=== PATIENT | male | born 1955 | race American Indian/Alaskan Native ===

== ENCOUNTER 2016-05-05 12:05 | Emergency (ER) | payer MEDICAID ==
[2016-05-05] MEDS ORDERED: TESSALON PERLES PO ONE (13:49)
[2016-05-05] MEDS ORDERED: TORADOL IV ONE (13:50)
[2016-05-05] MEDS ORDERED: APRESOLINE IV ONE (13:51)
[2016-05-05] MEDS ORDERED: REGLAN IV ONE (14:09)
[2016-05-05] MEDS ORDERED: DUONEB 0.5 MG-3 MG/3 ML SOLN IH ONE ×2 (14:09→18:44)
[2016-05-05] MEDS ORDERED: BENADRYL IV ONE (14:09)
--- NOTE | 2016-05-05 15:31 | Admit Criteria Form ---
Admission Criteria Documentation: HYPERTENSION Clinical Indications for Admission to Inpatient Care ( Place "X" for any and all applicable criteria): Admission is indicated for ANY ONE of the following(1)(2)(3)(4): [ ]I. Hypertensive emergency, with evidence of acute and progressing target organ disease as indicated by ANY ONE of the following: [ ]a) Hypertensive encephalopathy (eg, confusion, altered mental status) [ ]b) Cerebral infarction [ ]c) Intracranial hemorrhage [ ]d) Myocardial ischemia or infarction [ ]e) Pulmonary edema [ ]f) Aortic dissection [ ]g) Seizure [ ]h) Acute renal insufficiency [ ]i) Papilledema [ ]j) Microangiopathic hemolytic anemia [ ]II. Adrenergic crisis (eg, severe hypertension due to pheochromocytoma crisis, cocaine or amphetamine intoxication, or clonidine withdrawal) [X ]III. Severe hypertension (SBP greater than 180 mmHg or DBP greater than 110 mmHg or greater than the 95th percentile for age, gender, and height in pediatric patients) that cannot be controlled (eg, to SBP less than 160 mmHg and DBP less than 100 mmHg in adults) by treatment with oral medication in emergency department or observation care Extended stay beyond goal length of stay may be needed for(11)(12)(13): [ ]a) Persistent hypertensive encephalopathy [ ]b) Continuation of pulmonary edema [ ]c) Recurring or persistent severe hypertension [ ]d) Target organ damage (eg, angina, stroke, aortic dissection) [ ]e) Associated renal insufficiency The original [email or web address] content created by [email or web address] has been revised. The portions of the content which have been revised are identified through the use of italic text or in bold, and [facility] has neither reviewed nor approved the modified material. All other unmodified content is copyright [email or web address]. Please see references footnoted in the original [email or web address] edition 2016
[2016-05-05] MEDS ORDERED: DELTASONE PO ONE (18:44)
[2016-05-05] MEDS ORDERED: ZITHROMAX PO ONE (18:45)
--- NOTE | 2016-05-05 18:53 | Emergency Department Report ---
HPI - General Chief Complaint: Upper Respiratory Infection Time Seen by Provider: 05/05/16 13:47 - HPI HPI: The patient is a 61-year-old male with a history of asthma, who presents for evaluation of dyspnea and cough. The patient reports a nonproductive cough for greater than the past week, and wheezing with dyspnea, moderate to severe, exacerbated with exertion, improved with rest. He has secondary complaints of generalized moderate to severe aching in quality headache and cramping in quality moderate to severe epigastric abdominal pain, both worsened with coughing. The patient denies fever, chest pain, syncope, hemoptysis, unilateral leg swelling, recent immobilization, history of DVT or PE, recent cancer. ED Past Medical Hx - Past Medical History Hx Hypertension: Yes Hx Sickle Cell Disease: Yes (TRAIT) Hx Asthma: Yes Additional medical history: skull fracture, herniated disc - Surgical History Additional Surgical History: Left ulnar nerve impingement - Social History Smoking Status: Never Smoker Substance Use Type: None - Medications Home Medications: Home Medications Medication Instructions Recorded Confirmed Last Taken Type HYDROcodone/APAP 7.5-325 [Rainier 1 each PO Q6HR PRN #20 tablet 12/30/13 06/30/14 03/11/14 21:00 Rx 7.5-325 mg TAB] Naproxen [Naprosyn TAB] 500 mg PO BID #30 tablet 12/30/13 06/30/14 03/11/14 21: 00 Rx Oxycodone HCl/Acetaminophen 2 each PO Q6HR PRN #60 tablet 03/13/14 06/30/14 Unknown Rx [Percocet 7.5/325 mg] traMADol [Ultram] 50 mg PO Q6HR PRN #14 tablet 04/15/14 06/30/14 Unknown Rx Oxycodone HCl/Acetaminophen 1 each PO Q6H PRN #25 tablet 06/30/14 Unknown Rx [Percocet 7.5-325 mg Tablet] ALBUTEROL Inhaler [ProAir HFA 2 puff IH QID PRN #1 inhalation 02/02/15 Unknown Rx Inhaler] hydrOXYzine PAMOATE [Vistaril] 25 mg PO Q6HR PRN #20 capsule 02/02/15 Unknown Rx Famotidine [Pepcid] 20 mg PO BID #10 tablet 02/12/15 Unknown Rx hydrOXYzine PAMOATE [Vistaril] 25 mg PO Q6HR PRN #20 capsule 02/12/15 Unknown Rx ALBUTEROL Inhaler [ProAir HFA 2 puff IH QID PRN #1 inhalation 05/05/16 Unknown Rx Inhaler] Azithromycin [Zithromax Z-NUNU] 250 mg PO QDAY #6 tablet 05/05/16 Unknown Rx Benzonatate [Tessalon Perles] 100 mg PO Q8HR #14 capsule 05/05/16 Unknown Rx Verapamil HCl [Verapamil ER] 120 mg PO Q12H #60 tablet.er 05/05/16 Unknown Rx predniSONE [Deltasone] 20 mg PO QDAY #5 tab 05/05/16 Unknown Rx traMADol [Ultram 50 MG tab] 50 mg PO Q6HR PRN #10 tablet 05/05/16 Unknown Rx ED Review of Systems ROS: Stated complaint: SOB Other details as noted in HPI Constitutional: denies: fever ENT: denies: throat or neck pain Respiratory: reports cough, shortness of breath Cardiovascular: denies: chest pain Endocrine: denies unexplained weight loss or gain Gastrointestinal: denies: abdominal pain, nausea Genitourinary: denies: dysuria Musculoskeletal: denies: leg swelling Skin: denies: rash Neurological: reports headache Hematological/Lymphatic: denies: easy bleeding or easy bruising Psych: denies sadness or hopelessness Physical Exam - Physical Exam Vital Signs: Vital Signs 05/05/16 05/05/16 05/05/16 12:48 12:51 12:55 Temperature 99 F Pulse Rate 85 96 H 89 Pulse Rate [ Bilateral Upper Lobe] Respiratory 19 18 18 Rate Respiratory Rate [Bilateral Upper Lobe] Blood Pressure 156/98 O2 Sat by Pulse 92 93 94 Oximetry 05/05/16 05/05/16 05/05/16 13:00 13:11 13:21 Temperature Pulse Rate 87 82 94 H Pulse Rate [ Bilateral Upper Lobe] Respiratory 13 26 H 17 Rate Respiratory Rate [Bilateral Upper Lobe] Blood Pressure O2 Sat by Pulse 89 92 92 Oximetry 05/05/16 05/05/16 05/05/16 13:33 13:41 13:50 Temperature Pulse Rate 85 79 83 Pulse Rate [ Bilateral Upper Lobe] Respiratory 19 24 20 Rate Respiratory Rate [Bilateral Upper Lobe] Blood Pressure O2 Sat by Pulse 90 90 91 Oximetry 05/05/16 05/05/16 05/05/16 14:01 14:11 14:21 Temperature Pulse Rate 81 76 85 Pulse Rate [ Bilateral Upper Lobe] Respiratory 20 26 H 13 Rate Respiratory Rate [Bilateral Upper Lobe] Blood Pressure O2 Sat by Pulse 91 87 95 Oximetry 05/05/16 05/05/16 05/05/16 14:31 14:41 14:51 Temperature Pulse Rate 89 79 79 Pulse Rate [ Bilateral Upper Lobe] Respiratory 17 20 23 Rate Respiratory Rate [Bilateral Upper Lobe] Blood Pressure 180/106 180/106 O2 Sat by Pulse 93 96 96 Oximetry 05/05/16 05/05/16 05/05/16 15:00 15:05 15:11 Temperature Pulse Rate 76 78 Pulse Rate [ 85 Bilateral Upper Lobe] Respiratory 21 19 Rate Respiratory 18 Rate [Bilateral Upper Lobe] Blood Pressure 156/93 156/93 O2 Sat by Pulse 98 100 Oximetry 05/05/16 05/05/16 05/05/16 15:21 15:22 15:31 Temperature Pulse Rate 101 H 105 H Pulse Rate [ 88 Bilateral Upper Lobe] Respiratory 27 H 21 Rate Respiratory 18 Rate [Bilateral Upper Lobe] Blood Pressure 156/93 156/93 O2 Sat by Pulse 94 90 Oximetry 05/05/16 05/05/16 05/05/16 15:41 15:51 16:00 Temperature Pulse Rate 87 83 86 Pulse Rate [ Bilateral Upper Lobe] Respiratory 25 H 25 H 23 Rate Respiratory Rate [Bilateral Upper Lobe] Blood Pressure 156/93 156/93 126/67 O2 Sat by Pulse 91 93 100 Oximetry 05/05/16 05/05/16 05/05/16 16:10 16:20 16:30 Temperature Pulse Rate 103 H 86 86 Pulse Rate [ Bilateral Upper Lobe] Respiratory 16 22 21 Rate Respiratory Rate [Bilateral Upper Lobe] Blood Pressure 126/67 126/67 126/67 O2 Sat by Pulse 88 93 91 Oximetry 05/05/16 05/05/16 05/05/16 16:40 16:50 17:00 Temperature Pulse Rate 103 H 85 86 Pulse Rate [ Bilateral Upper Lobe] Respiratory 21 22 22 Rate Respiratory Rate [Bilateral Upper Lobe] Blood Pressure 126/67 126/67 119/64 O2 Sat by Pulse 94 93 92 Oximetry 05/05/16 05/05/16 05/05/16 17:10 17:20 17:30 Temperature Pulse Rate 85 87 84 Pulse Rate [ Bilateral Upper Lobe] Respiratory 25 H 20 12 Rate Respiratory Rate [Bilateral Upper Lobe] Blood Pressure 119/64 119/64 119/64 O2 Sat by Pulse 92 94 96 Oximetry 05/05/16 05/05/16 17:40 17:50 Temperature Pulse Rate 82 Pulse Rate [ Bilateral Upper Lobe] Respiratory 19 Rate Respiratory Rate [Bilateral Upper Lobe] Blood Pressure 119/64 119/64 O2 Sat by Pulse 94 89 Oximetry Physical Exam: General: well-nourished, well-developed, no acute distress Head: Normocephalic, atraumatic Eyes: normal sclera, PERRL, EOM intact ENT: Mucous membranes are pink and moist, bilateral nasal congestion present Neck: trachea midline, neck supple, No neck stiffness, no cervical adenopathy Respiratory: Mildly diminished breath sounds and wheezing present throughout lung lewis bilaterally Cardio: S1 and S2 present, no murmurs, rubs, gallops, capillary refill is brisk Abdomen: Normoactive bowel sounds, soft abdomen, no rigidity, no guarding or rebound tenderness Chest WALL/Back: No tenderness to palpation of the chest wall, no CVA tenderness with percussion Musc: No pitting edema Skin: No rash Neuro: alert oriented x4, normal cognition, speech normal, no facial drooping, no uvula or tongue deviation on protrusion, no deficit with rotation of neck or shoulder shrug, no obvious gross motor deficit in the upper or lower extremities with flexion or extension at the shoulder, elbow, wrist, hip, knee, or ankle bilaterally, no obvious gross sensation deficit to crude touch or 2 pt discrimination, 2+ symmetric reflexes on DTR testing, no coordination deficit with [id number] or [id number] testing, romberg negative, patient able to to ambulate without abnormal gait Psych: Normal affect ED Course Vital Signs 05/05/16 05/05/16 05/05/16 12:48 12:51 12:55 Temperature 99 F Pulse Rate 85 96 H 89 Pulse Rate [ Bilateral Upper Lobe] Respiratory 19 18 18 Rate Respiratory Rate [Bilateral Upper Lobe] Blood Pressure 156/98 O2 Sat by Pulse 92 93 94 Oximetry 05/05/16 05/05/16 05/05/16 13:00 13:11 13:21 Temperature Pulse Rate 87 82 94 H Pulse Rate [ Bilateral Upper Lobe] Respiratory 13 26 H 17 Rate Respiratory Rate [Bilateral Upper Lobe] Blood Pressure O2 Sat by Pulse 89 92 92 Oximetry 05/05/16 05/05/16 05/05/16 13:33 13:41 13:50 Temperature Pulse Rate 85 79 83 Pulse Rate [ Bilateral Upper Lobe] Respiratory 19 24 20 Rate Respiratory Rate [Bilateral Upper Lobe] Blood Pressure O2 Sat by Pulse 90 90 91 Oximetry 05/05/16 05/05/16 05/05/16 14:01 14:11 14:21 Temperature Pulse Rate 81 76 85 Pulse Rate [ Bilateral Upper Lobe] Respiratory 20 26 H 13 Rate Respiratory Rate [Bilateral Upper Lobe] Blood Pressure O2 Sat by Pulse 91 87 95 Oximetry 05/05/16 05/05/16 05/05/16 14:31 14:41 14:51 Temperature Pulse Rate 89 79 79 Pulse Rate [ Bilateral Upper Lobe] Respiratory 17 20 23 Rate Respiratory Rate [Bilateral Upper Lobe] Blood Pressure 180/106 180/106 O2 Sat by Pulse 93 96 96 Oximetry 05/05/16 05/05/16 05/05/16 15:00 15:05 15:11 Temperature Pulse Rate 76 78 Pulse Rate [ 85 Bilateral Upper Lobe] Respiratory 21 19 Rate Respiratory 18 Rate [Bilateral Upper Lobe] Blood Pressure 156/93 156/93 O2 Sat by Pulse 98 100 Oximetry 05/05/16 05/05/16 05/05/16 15:21 15:22 15:31 Temperature Pulse Rate 101 H 105 H Pulse Rate [ 88 Bilateral Upper Lobe] Respiratory 27 H 21 Rate Respiratory 18 Rate [Bilateral Upper Lobe] Blood Pressure 156/93 156/93 O2 Sat by Pulse 94 90 Oximetry 05/05/16 05/05/16 05/05/16 15:41 15:51 16:00 Temperature Pulse Rate 87 83 86 Pulse Rate [ Bilateral Upper Lobe] Respiratory 25 H 25 H 23 Rate Respiratory Rate [Bilateral Upper Lobe] Blood Pressure 156/93 156/93 126/67 O2 Sat by Pulse 91 93 100 Oximetry 05/05/16 05/05/16 05/05/16 16:10 16:20 16:30 Temperature Pulse Rate 103 H 86 86 Pulse Rate [ Bilateral Upper Lobe] Respiratory 16 22 21 Rate Respiratory Rate [Bilateral Upper Lobe] Blood Pressure 126/67 126/67 126/67 O2 Sat by Pulse 88 93 91 Oximetry 05/05/16 05/05/16 05/05/16 16:40 16:50 17:00 Temperature Pulse Rate 103 H 85 86 Pulse Rate [ Bilateral Upper Lobe] Respiratory 21 22 22 Rate Respiratory Rate [Bilateral Upper Lobe] Blood Pressure 126/67 126/67 119/64 O2 Sat by Pulse 94 93 92 Oximetry 05/05/16 05/05/16 05/05/16 17:10 17:20 17:30 Temperature Pulse Rate 85 87 84 Pulse Rate [ Bilateral Upper Lobe] Respiratory 25 H 20 12 Rate Respiratory Rate [Bilateral Upper Lobe] Blood Pressure 119/64 119/64 119/64 O2 Sat by Pulse 92 94 96 Oximetry 05/05/16 05/05/16 17:40 17:50 Temperature Pulse Rate 82 Pulse Rate [ Bilateral Upper Lobe] Respiratory 19 Rate Respiratory Rate [Bilateral Upper Lobe] Blood Pressure 119/64 119/64 O2 Sat by Pulse 94 89 Oximetry ED Medical Decision Making - Medical Decision Making The patient was seen and examined by myself. The patient is placed on a property assessment monitor and continuous pulse ox. On initial evaluation, the patient was found to be in no distress. As there are no neuro deficits or other findings on examination concerning for acute intracranial disease process, and as the patient states that symptoms are consistent with previous headaches, a CAT scan of the head will not be obtained at this time. Evaluation orders were placed. The patient is given a breathing treatment and prednisone for txt of asthma. The patient is given IV Reglan, Benadryl, and Toradol for treatment of his headache. Chest x-ray negative for focal consolidation, pleural effusions, pulmonary congestion, pneumothorax, or other acute cardio pulmonary disease process. The patient was reevaluated and reported that their symptoms were markedly improved. The patient is stable for discharge with outpatient follow- up. The patient is given follow-up and return instructions. The patient expressed understanding and agreed with the plan. The patient is given a prescription for prednisone. The patient is discharged in stable condition. Critical care attestation.: If time is entered above; I have spent that time in minutes in the direct care of this critically ill patient, excluding procedure time. ED Disposition Clinical Impression: Asthma with acute exacerbation in adult, Upper respiratory infection, acute Acute nonintractable headache Qualifiers: Headache type: unspecified Qualified Code(s): R51 - Headache Disposition: DISCHARGED TO HOME OR SELFCARE Is pt being admited?: No Does the pt Need Aspirin: No Condition: Stable Instructions: Asthma (ED), Tension Headache (ED), Upper Respiratory Infection ( ED) Referrals: PRIMARY CARE, [Primary Care Provider] - 3-5 Days Time of Disposition: 18:48
[2016-05-05 18:55] VITALS: BP 128/64
--- NOTE | 2016-05-09 07:31 | XRay Report ---
ROUTINE CHEST, TWO VIEWS: HISTORY: Dyspnea. Mild hyperinflation is noted. The lungs are clear. Normal heart and mediastinal structures. The bony thorax is intact. No significant change since 04/15/14. IMPRESSION: Mild hyperinflation. No acute cardiopulmonary process.
== END 2016-05-05 20:00 | disposition home or self-care (01) ==
LOC: ED 12:05
DX: J45.901 Unspecified asthma with (acute) exacerbation (principal); J06.9 Acute upper respiratory infection, unspecified; R51 Headache; I10 Essential (primary) hypertension; D57.00 Hb-SS disease with crisis, unspecified
CPT/HCPCS: 71020; 94640; 96374; 96375; 99284; J0360; J1200; J1885; J2765; J7512

== ENCOUNTER 2018-09-12 04:37 | Emergency (ER) | payer MEDICAID ==
[2018-09-12] MEDS ORDERED: APRESOLINE IM ONE (05:35)
[2018-09-12] MEDS ORDERED: DECADRON IM ONE (05:35)
[2018-09-12] MEDS ORDERED: TORADOL IM ONE (05:35)
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
[2018-09-12] MEDS ORDERED: CATAPRES PO ONE (07:25)
[2018-09-12] MEDS ORDERED: CATAPRES ONE (07:26)
[2018-09-12 08:34] VITALS: BP 136/83
== END 2018-09-12 08:20 | disposition home or self-care (01) ==
LOC: ED 04:37
DX: I10 Essential (primary) hypertension (principal); J06.9 Acute upper respiratory infection, unspecified; J45.909 Unspecified asthma, uncomplicated; M19.012 Primary osteoarthritis, left shoulder; M19.011 Primary osteoarthritis, right shoulder; F17.200 Nicotine dependence, unspecified, uncomplicated; Z79.899 Other long term (current) drug therapy; Z88.8 Allergy status to other drugs, medicaments and biological substances
CPT/HCPCS: 96372; 99282; J0360; J1100; J1885